=== PATIENT | male | born 1980 | race African-American/Black ===

== ENCOUNTER → 2021-01-01 | Outpatient (CLI) | payer OTHER | LOC: MHCPAIN 10:47 | DX: M79.10 Myalgia, unspecified site (principal); M54.6 Pain in thoracic spine; G89.29 Other chronic pain | CPT/HCPCS: G0463 ==

== ENCOUNTER 2023-07-09 14:15 | Outpatient (RCR) | payer OTHER | END 2023-07-16 | disposition home or self-care (01) | LOC: WSPT | DX: M25.512 Pain in left shoulder (principal) ==